=== PATIENT | female | born 1970 | race Caucasian/White ===

== ENCOUNTER 2021-04-18 00:01 | Inpatient (IN) ==
[2021-04-18 00:45] LABS: Basophils # 0.1 K/mcL (0.0-0.2); Basophils % 0.6 %; Eosinophils # 0.1 K/mcL (0.0-0.6); Eosinophils % 1.2 %; Hemoglobin 13.6 g/dL (11.5-15.4); Immature Granulocytes % 0.2 % (0-4); Lymphocytes # 2.4 K/mcL (0.6-4.6); Lymphocytes % 24.2 %; Mean Corpuscular HGB Conc 33.2 g/dL (31.6-35.5); Mean Corpuscular Hemoglobin 29.7 pg (28.0-33.3); Mean Corpuscular Volume 89.5 fL (83.0-100.0); Mean Platelet Volume 9.2 fL (9.4-12.4); Monocytes # 0.7 K/mcL (0.0-1.3); Monocytes % 7.2 %; Neutrophils # 6.5 K/mcL (1.6-8.9); Platelet Count 368 K/mcL (140-400); Red Blood Count 4.58 M/mcL (3.82-4.97); Red Cell Distribution Width 13.1 % (11.5-14.5); Segmented Neutrophils % 66.6 %; White Blood Count 9.7 K/mcL (4.3-11.1)
[2021-04-18 00:58] LABS: Bacteria,Urine Few per hpf (None-Few); Bilirubin,Urine Negative (Negative); Blood,Urine Small (Negative); Clarity,Urine Turbid (Clear); Color,Urine Yellow (Yellow); Glucose,Urine (UA) Normal (Normal); Ketones,Urine Trace mg/dL (Negative); Leukocyte Esterase,Urine Small (Negative); Mucus,Urine Few per lpf (None-Few); Nitrite,Urine Positive (Negative); Protein,Urine Trace mg/dL (Neg-Trace); Specific Gravity,Urine 1.027 (1.010-1.025); Squamous Epithelial Cell,Urine Moderate per hpf (None-Few); Urobilinogen,Urine Normal (Normal)
[2021-04-18 01:04] LABS: Acetaminophen < 10 mcg/mL (10-20); Amphetamine Screen,Urine Positive ng/mL (Cutoff=1000); BUN/Creatinine Ratio 16 (6-26); Barbiturate Screen,Urine Negative ng/mL (Cutoff=200); Benzodiazepines Screen,Urine Negative ng/mL (Cutoff=200); Blood Urea Nitrogen 16 mg/dL (6-20); Calcium 9.7 mg/dL (8.6-10.3); Cannabinoid Screen,Urine Positive ng/mL (Cutoff = 50); Carbon Dioxide 28 mEq/L (23-29); Chloride 104 mEq/L (98-107); Cocaine Screen,Urine Negative ng/mL (Cutoff= 300); Ethanol < 10 mg/dL (Less than 10); Glucose 101 mg/dL (70-105); Opiate Screen,Urine Negative ng/mL (Cutoff=300); Osmolality,Calculated 289 (280-300); Phencyclidine Screen,Urine Negative ng/mL (Cutoff=25); Potassium 3.6 mEq/L (3.5-5.1); Salicylate < 2.5 mg/dL (15.0-30.0); Sodium 139 mEq/L (136-145); eGFR For African Americans > 60 (> 60); eGFR For Non-African Americans 59 (> 60)
[2021-04-18 04:07] LABS: Adenovirus Not Detected (Not Detect); Bordetella Pertussis Not Detected (Not Detect); Chlamydophila pneumoniae Not Detected (Not Detect); Coronavirus 229E Not Detected (Not Detect); Coronavirus HKU1 Not Detected (Not Detect); Coronavirus NL63 Not Detected (Not Detect); Coronavirus OC43 Not Detected (Not Detect); Human Metapneumovirus Not Detected (Not Detect); Human Rhinovirus/Enterovirus Not Detected (Not Detect); Influenza A Subtype 2009 H1 Not Detected (Not Detect); Influenza B Not Detected (Not Detect); Mycoplasma pneumoniae Not Detected (Not Detect); Parainfluenza Virus 1 Not Detected (Not Detect); Parainfluenza Virus 2 Not Detected (Not Detect); Parainfluenza Virus 3 Not Detected (Not Detect); Parainfluenza Virus 4 Not Detected (Not Detect); Respiratory Syncytial Virus Not Detected (Not Detect); SARS-CoV-2 Not Detected (Not Detect)
[2021-04-18] MEDS ORDERED: Haloperidol Lactate 5 MG/ML VIAL IM PRN (04:24)
[2021-04-18] MEDS ORDERED: haloperidoL 5 MG TABLET PO PRN (04:24)
[2021-04-18] MEDS ORDERED: QUEtiapine Fumarate 25 MG TABLET PO PRN (04:24)
[2021-04-18] MEDS ORDERED: *HR* LORazepam 1 MG TABLET PO PRN (04:24)
[2021-04-18] MEDS ORDERED: *HR* LORazepam 2 MG/ML VIAL IM PRN (04:24)
[2021-04-18] MEDS: Nicotine 21 MG PATCH.TD24 TD SCH (09:27)
[2021-04-18] MEDS ORDERED: MOM Conc 10 ML UD.LIQ PO PRN (09:55)
[2021-04-18] MEDS ORDERED: Mag Hydrox/Al Hydrox/Simeth 30 ML UDC PO PRN (09:55)
[2021-04-18] MEDS ORDERED: hydrOXYzine pamoate 25 MG CAPSULE PO PRN (09:55)
[2021-04-18] MEDS ORDERED: Ibuprofen 400 MG TABLET PO PRN (09:55)
[2021-04-18] MEDS: Sulfamethoxazole/Trimeth DS 1 EACH TABLET PO SCH ×2 (13:56→22:01)
[2021-04-18] MEDS: Ziprasidone 20 MG CAPSULE PO SCH (16:26)
[2021-04-18] MEDS: Ziprasidone 80 MG CAPSULE PO SCH (17:32)
[2021-04-19] MEDS: Sulfamethoxazole/Trimeth DS 1 EACH TABLET PO SCH ×2 (08:47→21:20)
[2021-04-19] MEDS: Ziprasidone 20 MG CAPSULE PO SCH ×2 (08:47→21:20)
[2021-04-19] MEDS: Ziprasidone 80 MG CAPSULE PO SCH ×2 (08:47→21:20)
[2021-04-19] MEDS: Nicotine 21 MG PATCH.TD24 TD SCH (08:48)
[2021-04-19 21:57] VITALS: O2SAT 96
[2021-04-20] MEDS: Ziprasidone 20 MG CAPSULE PO SCH (08:48)
[2021-04-20] MEDS: Sulfamethoxazole/Trimeth DS 1 EACH TABLET PO SCH (08:48)
[2021-04-20] MEDS: Ziprasidone 80 MG CAPSULE PO SCH (08:48)
[2021-04-20] MEDS: Nicotine 21 MG PATCH.TD24 TD SCH (08:49)
[2021-04-20 09:47] VITALS: BP 108/75; PULSE 109; TEMP 97.2
== END 2021-04-20 16:55 | disposition home or self-care (01) | DRG 885 ==
LOC: EMEROOARM 00:01 → 1ANU 04:15
PROVIDERS: ADMIT Psychiatry & Neurology Psychiatry; ATTEND Psychiatry & Neurology Psychiatry